=== PATIENT | female | born 1970 | race Caucasian/White ===

== ENCOUNTER 2017-08-03 08:05 | Day surgery (SDC) | payer OTHER ==
[2017-08-03 08:49] VITALS: BMI 30.2
--- NOTE | 2017-08-03 09:29 | CP.SDSHP ---
Same Day Surgery H & P - History Proposed Procedure: colomnoscopy - Allergies Allergies: Allergies No Known Allergies Allergy (Verified 11/27/12 21:41) - Physical Exam Vital Signs: Vital Signs 08/03/17 08:51 Temperature 97.3 F L Pulse Rate 79 Respiratory 19 Rate Blood Pressure 120/81 O2 Sat by Pulse 100 Oximetry - Date & Time Date: 08/03/17 Time: 09:28 Short Stay Discharge - Short Stay Discharge Admitting Diagnosis/Reason for Visit: CHANGE IN BOWEL HABITS Disposition: HOME/ ROUTINE
[2017-08-03] MEDS ORDERED: Propofol 10 mg/ml Inj (20 ML) ONE ×2 (09:53→10:06)
[2017-08-03] MEDS ORDERED: Lactated Ringer's 500 ML IV ONE ×2 (10:01)
[2017-08-03 11:24] VITALS: RESP 15; TEMP 97.3
[2017-08-03 11:43] VITALS: BP 115/79; PULSE 78; O2SAT 97
== END 2017-08-03 15:10 | disposition home or self-care (01) ==
LOC: C.ENDO 08:05
PROVIDERS: ATTEND Colon & Rectal Surgery
DX: R19.4 Change in bowel habit (principal); K64.8 Other hemorrhoids
CPT/HCPCS: 45378; 84703; J2704; J7120